=== PATIENT | female | born 1950 | race African-American/Black ===

== ENCOUNTER 2018-02-22 03:34 | Emergency (ER) | payer OTHER ==
[2018-02-22] MEDS ORDERED: Colchicine 0.6 MG TAB ONE (04:02)
[2018-02-22] MEDS ORDERED: Ketorolac Tromethamine 30 MG/ML VIAL ONE (04:02)
[2018-02-22] MEDS ORDERED: Morphine 4 MG/ML VIAL ONE (04:02)
[2018-02-22] MEDS ORDERED: HYDROcodone/Acetaminophen 5/325 mg Tablet ONE (04:37)
[2018-02-22] MEDS ORDERED: Acetaminophen 325 MG TAB ONE (04:37)
--- NOTE | 2018-02-22 08:25 | RAD ---
LEFT KNEE 4 VIEWS: HISTORY: Fall, left knee pain. FINDINGS/IMPRESSION: Degenerative changes are present. No acute fracture or dislocation is identified. POS: [facility]
--- NOTE | 2018-02-22 09:04 | RAD ---
LEFT TIBIA FIBULA 2 VIEWS: HISTORY: The patient fell 3 days ago. COMPARISON: None. FINDINGS: There are soft tissue calcifications. No fracture. No cortical irregularity or periosteal reaction. IMPRESSION: No fracture. POS: [facility]
== END 2018-02-22 05:00 | disposition home or self-care (01) ==
LOC: MADERS 03:34
DX: S83.92XA Sprain of unspecified site of left knee, initial encounter (principal); I10 Essential (primary) hypertension; M10.9 Gout, unspecified; E66.9 Obesity, unspecified; Z79.899 Other long term (current) drug therapy; W19.XXXA Unspecified fall, initial encounter
CPT/HCPCS: 96374; 96375; J1885; J2270

== ENCOUNTER 2019-09-29 21:32 | Emergency (ER) | payer OTHER ==
[2019-09-29 22:11] LABS: Hemoglobin 12.8 g/dL (12.0-16.0); Mean Corpuscular HGB CONC 29.9 g/dL (32.0-36.0); Mean Corpuscular Hemoglobin 20.8 pg (27.0-31.0); Mean Corpuscular Volume 69.7 fL (78.0-98.0); Mean Platelet Volume 6.1 fL (7.4-10.4); Platelet Count 347 thou/uL (130-400); RBC Distribution Width 15.1 % (11.5-14.5); Red Blood Cell (RBC) Count 6.13 mill/uL (4.20-5.40); White Blood Cell (WBC) Count 8.5 thou/uL (4.8-10.8)
[2019-09-29 22:20] LABS: ALT (SGPT) 18 U/L (8-55); AST (SGOT) 23 U/L (5-34); Albumin 3.6 g/dL (3.4-4.8); Alkaline Phosphatase 101 U/L (40-110); Anion Gap 20 mmol/L (10-20); BUN (Urea Nitrogen) 8 mg/dL (9.8-20.1); Bilirubin, Total 0.6 mg/dL (0.2-1.2); Calc. Creatinine Clearance 0 mL/min (70-130); Calcium 9.6 mg/dL (7.8-10.44); Carbon Dioxide 20 mmol/L (23-31); Chloride 98 mmol/L (98-107); Estimated GFR-MDRD Greater than 90; Glucose 132 mg/dL (80-115); Magnesium 1.8 mg/dL (1.6-2.6); Potassium 3.5 mmol/L (3.5-5.1); Protein, Total 8.6 g/dL (6.0-8.3); Sodium 134 mmol/L (136-145)
[2019-09-29] MEDS ORDERED: Sodium Chloride 0.9% 1,000 ML ONE (22:30)
[2019-09-29 22:32] LABS: Eosinophils 1 % (0-10); Hypochromia SLIGHT = 6-15 cells (100X) (0-5/hpf); Lymphocytes 26 % (21-51); MDiff Complete? YES; Microcytosis SLIGHT = 6-15 cells (100X) (0-5/hpf); Monocytes 5 % (0-10); Neutrophil 68 % (42-75); Platelet Morphology Comment Appears Adequate
[2019-09-29 22:37] LABS: Bilirubin Moderate (Negative); Blood, Urine Large (Negative); Clarity Cloudy (Clear); Glucose, Urine (Dipstick) Negative (Negative); Leukocyte Large (Negative); Nitrite Negative (Negative); Protein, Urine (Dipstick) > or equal to 300 mg/dL (Neg-Trace)
[2019-09-29 22:46] LABS: Bacteria/HPF 4+ HPF (None Seen); Mucous/LPF Rare LPF (<2+); RBC/HPF 21-50 HPF (0-3); WBC/HPF Greater Than 50 HPF (0-3)
[2019-09-29] MEDS ORDERED: cefTRIAXone\\ROCEPHIN 1 GM VIAL ONE (22:50)
[2019-09-29] MEDS ORDERED: Sodium Chloride 0.9% 50 ML ONE (22:51)
== END 2019-09-29 23:52 | disposition home or self-care (01) ==
LOC: MADERS 21:32
DX: N39.0 Urinary tract infection, site not specified (principal); R44.3 Hallucinations, unspecified; E87.1 Hypo-osmolality and hyponatremia; R94.6 Abnormal results of thyroid function studies; R21 Rash and other nonspecific skin eruption; H54.7 Unspecified visual loss; I10 Essential (primary) hypertension; E66.9 Obesity, unspecified; M10.9 Gout, unspecified; Z85.3 Personal history of malignant neoplasm of breast; Z79.899 Other long term (current) drug therapy
CPT/HCPCS: 51702; 80053; 81003; 81015; 83605; 83735; 84443; 85025; 87077; 87086; 87186; 96365; J0696; J7050

== ENCOUNTER 2020-11-18 00:22 | Emergency (ER) | payer OTHER ==
[2020-11-18 01:09] LABS: Bacteria/HPF 1+ HPF (None Seen); Bilirubin Large (Negative); Blood, Urine Large (Negative); Clarity Slightly Cloudy (Clear); Glucose, Urine (Dipstick) Negative (Negative); Ketone, Urine 40 mg/dL (Negative); Leukocyte Negative (Negative); Nitrite Negative (Negative); Protein, Urine (Dipstick) 30 mg/dL (Neg-Trace); RBC/HPF Greater than 50 HPF (0-3); WBC/HPF 0-3 HPF (0-3); pH, Urine 5.5 (5.0-9.0)
[2020-11-18] MEDS ORDERED: cefTRIAXone\\ROCEPHIN 1 GM VIAL ONE (01:22)
[2020-11-18] MEDS ORDERED: Lidocaine 1% 20 ML MDV ONE (01:22)
== END 2020-11-18 01:54 | disposition home or self-care (01) ==
LOC: MADERS 00:22 → EDBD 00:22 → MADERS 01:54
DX: N39.0 Urinary tract infection, site not specified (principal); I10 Essential (primary) hypertension; M10.9 Gout, unspecified; E66.9 Obesity, unspecified; Z85.3 Personal history of malignant neoplasm of breast
CPT/HCPCS: 81003; 81015; 87086; 96372; 99283; J0696

== ENCOUNTER 2023-03-09 14:19 | Outpatient (CLI) | payer OTHER ==
[2023-03-09 14:57] LABS: ALT (SGPT) 11 U/L (8-55); AST (SGOT) 15 U/L (5-34); Albumin 4.1 g/dL (3.4-4.8); Alkaline Phosphatase 124 U/L (40-110); Anion Gap 19 mmol/L (10-20); BUN (Urea Nitrogen) 13 mg/dL (9.8-20.1); Bilirubin, Total 0.3 mg/dL (0.2-1.2); Calc. Creatinine Clearance 0 mL/min (70-130); Calcium 9.9 mg/dL (7.8-10.44); Carbon Dioxide 23 mmol/L (23-31); Chloride 98 mmol/L (98-107); Estimated GFR 86; Globulin 4.8 g/dL (2.4-3.5); Glucose 156 mg/dL (83-110); Potassium 4.5 mmol/L (3.5-5.1); Protein, Total 8.9 g/dL (5.8-8.1); Sodium 135 mmol/L (136-145)
[2023-03-09 16:19] LABS: #Basophils 0.1 thou/uL (0.0-0.2); #Eosinphils 0.2 thou/uL (0.0-0.7); #Lymphocytes 2.2 thou/uL (1.20-3.40); #Monocytes 0.3 thou/uL (0.11-0.59); %Basophils 1.1 % (0.0-1.0); %Eosinophils 2.8 % (0.0-10.0); %Lymphocytes 38.5 % (21.0-51.0); %Monocytes 5.4 % (0.0-10.0); %Neutrophils 52.2 % (42.0-75.0); Hematocrit 50.8 % (36.0-47.0); MDiff Complete? YES; Mean Corpuscular HGB CONC 29.4 g/dL (32.0-36.0); Mean Corpuscular Hemoglobin 21.9 pg (27.0-31.0); Mean Corpuscular Volume 74.4 fl (78.0-98.0); Mean Platelet Volume 6.5 fL (7.4-10.4); Microcytosis SLIGHT = 6-15 cells (100X) (0-5/hpf); Platelet Count 298 10x3/uL (130-400); RBC Distribution Width 15.8 % (11.5-14.5); Red Blood Cell (RBC) Count 6.83 mill/uL (4.20-5.40); White Blood Cell (WBC) Count 5.8 10x3/uL (4.8-10.8)
== END 2023-03-09 14:20 | disposition home or self-care (01) ==
LOC: MADLABBHPM 14:19
PROVIDERS: ATTEND Internal Medicine
DX: I10 Essential (primary) hypertension (principal)
CPT/HCPCS: 80053; 84443; 85025

== ENCOUNTER 2024-04-27 11:02 | Emergency (ER) | payer OTHER ==
[~2024-04-27 11:02] MED LIST: Iopamidol 370 76% 100 ML VIAL ONE
[2024-04-27] MEDS ORDERED: Clindamycin/D5W 900 mg/50 ml Premix Bag ONE (12:04)
[2024-04-27 12:36] LABS: INR-International Normal Ratio 1.1; Prothrombin Time 14.6 sec (12.0-14.7)
[2024-04-27 12:37] LABS: PTT 46.2 sec (22.9-36.1)
[2024-04-27 12:38] LABS: Hematocrit 40.3 % (36.0-47.0); Hemoglobin 11.7 g/dL (12.0-16.0); Mean Corpuscular HGB CONC 29.2 g/dL (32.0-36.0); Mean Corpuscular Volume 75.6 fl (78.0-98.0); Platelet Count 494 10x3/uL (130-400); RBC Distribution Width 17.2 % (11.5-14.5); Red Blood Cell (RBC) Count 5.33 mill/uL (4.20-5.40); White Blood Cell (WBC) Count 12.4 10x3/uL (4.8-10.8)
[2024-04-27 12:46] LABS: Band 2 % (5-11); Critical Call w/ Read Back N P; Eosinophils 3 % (0-10); Lymphocytes 12 % (21-51); MDiff Complete? YES; Manual Diff?? YES; Monocytes 11 % (0-10); Neutrophil 72 % (42-75)
[2024-04-27 12:47] LABS: Anisocytosis SLIGHT = 6-15 cells (100X) (0-5/hpf); Platelet Adequacy Comment Appears Increased
[2024-04-27 12:52] LABS: AST (SGOT) 30 U/L (11-34); Albumin 2.2 g/dL (3.1-4.5); Alkaline Phosphatase 97 U/L (40-110); Anion Gap 17 mmol/L (10-20); BUN (Urea Nitrogen) 22 mg/dL (9.8-20.1); Bilirubin, Total 0.6 mg/dL (0.3-1.2); Calc. Creatinine Clearance 0 mL/min (70-130); Calcium 9.6 mg/dL (7.8-10.44); Carbon Dioxide 22 mmol/L (23-31); Chloride 103 mmol/L (98-107); Estimated GFR 92; Globulin 6.6 g/dL (2.4-3.5); Glucose 160 mg/dL (83-110); Potassium 4.1 mmol/L (3.5-5.1); Protein, Total 8.8 g/dL (5.8-8.1); Sodium 138 mmol/L (136-145)
[2024-04-27] MEDS ORDERED: Sodium Chloride 0.9% 100 ML ONE (13:31)
[2024-04-27] MEDS ORDERED: Cefepime 2 GM VIAL ONE (13:31)
[2024-04-27 13:44] LABS: ALT (SGPT) 17 U/L (Less than 34)
[2024-04-27] MEDS ORDERED: Vancomycin HCl 500 MG VIAL ONE (14:30)
[2024-04-27] MEDS ORDERED: Vancomycin 1 GM VIAL ONE (14:31)
== END 2024-04-27 20:09 | disposition short-term general hospital (02) ==
LOC: MADERS 11:02
DX: L89.313 Pressure ulcer of right buttock, stage 3 (principal); M46.28 Osteomyelitis of vertebra, sacral and sacrococcygeal region; I10 Essential (primary) hypertension
CPT/HCPCS: 36415; 72193; 80053; 83605; 85025; 85610; 85730; 87040; 87070; 87077; 87186; 87205; 93005; 94760; 96361; 96365; 96366; 96367; J0692; J3370; J3490; Q9967

== ENCOUNTER 2025-01-01 16:21 | Emergency (ER) | payer MEDICAID | END 2025-01-01 23:40 | LOC: MADERS 16:21 | DX: S00.03XA Contusion of scalp, initial encounter (principal); L89.154 Pressure ulcer of sacral region, stage 4; I10 Essential (primary) hypertension; Z79.899 Other long term (current) drug therapy; W06.XXXA Fall from bed, initial encounter | CPT/HCPCS: 70450; 72125; 72170 ==

== ENCOUNTER 2025-02-20 21:39 | Outpatient (CLI) | payer MEDICAID, OTHER ==
[2025-02-20 22:15] LABS: #Basophils 0.1 thou/uL (0.0-0.2); #Eosinophils 0.4 thou/uL (0.0-0.7); #Monocytes 0.8 thou/uL (0.11-0.59); #Neutrophils 6.0 thou/uL (1.40-6.50); %Basophils 1.4 % (0.0-1.0); %Eosinophils 4.4 % (0.0-10.0); %Lymphocytes 25.0 % (21.0-51.0); %Monocytes 8.3 % (0.0-10.0); %Neutrophils 61.0 % (42.0-75.0); Hematocrit 36.9 % (36.0-47.0); Hemoglobin 11.1 g/dL (12.0-16.0); Mean Corpuscular Hemoglobin 22.5 pg (27.0-31.0); Mean Corpuscular Volume 75.0 fl (78.0-98.0); Platelet Count 350 10x3/uL (130-400); Red Blood Cell (RBC) Count 4.92 mill/uL (4.20-5.40); White Blood Cell (WBC) Count 9.8 10x3/uL (4.8-10.8)
[2025-02-20 22:16] LABS: ALT (SGPT) 12 U/L (Less than 34); AST (SGOT) 17 U/L (11-34); Albumin 2.2 g/dL (3.1-4.5); Alkaline Phosphatase 99 U/L (40-110); Anion Gap 16 mmol/L (10-20); BUN (Urea Nitrogen) 23 mg/dL (9.8-20.1); Bilirubin, Total 0.1 mg/dL (0.3-1.2); Calc. Creatinine Clearance 0 mL/min (70-130); Calcium 8.6 mg/dL (7.8-10.44); Carbon Dioxide 22 mmol/L (23-31); Chloride 105 mmol/L (98-107); Globulin 4.4 g/dL (2.4-3.5); Glucose 121 mg/dL (83-110); MDiff Complete? YES; Potassium 5.0 mmol/L (3.5-5.1); Sodium 138 mmol/L (136-145); Target Cells SLIGHT = 2-5 cells (100X) (0-1/hpf)
== END 2025-02-20 21:40 | disposition home or self-care (01) ==
LOC: MADLAB 21:39
PROVIDERS: ATTEND Nurse Practitioner Primary Care
DX: M46.28 Osteomyelitis of vertebra, sacral and sacrococcygeal region (principal); M24.541 Contracture, right hand; E43 Unspecified severe protein-calorie malnutrition
CPT/HCPCS: 80053; 85025